=== PATIENT | female | born 1980 | race Caucasian/White ===

== ENCOUNTER 2016-11-27 18:41 | Emergency (ER) | payer MEDICAID ==
[~2016-11-27] VITALS: Ht 160 cm; Wt 61.0 kg
[2016-11-27 18:46] VITALS: Ht 160 cm; Wt 61.0 kg
[2016-11-27] MEDS ORDERED: ACETAMINOPHEN 325 MG TAB PO STA (19:00)
[2016-11-27] MEDS ORDERED: IBUP-1542 PO (20:15)
--- NOTE | 2016-11-27 20:17 | RADRPT ---
PROCEDURE: US OB. CLINICAL INDICATION: Pelvic pain TECHNIQUE: Transabdominal and transvaginal views of the pelvis are available for review. COMPARISON: No prior studies are available for comparison. FINDINGS: There is a single intrauterine gestation with the crown-rump length measuring 0.4 cm and the gestat ional sac measuring 0.8 cm, corresponding to a gestational age of 5 weeks and 5 days. The heart tones are not yet identified. There are hypoechoic masses in the uterus measuring up to 1.9 cm, consistent with fibroids. The right ovary measures 2.6 x 2.4 x 2.9 cm. There is Doppler flow identified. There is a corpus lut eum cyst in the right ovary. The left ovary was not visualized. There is a small to moderate amount of free fluid in the cul-de-sac. RPTAT: AA IMPRESSION: Single intrauterine with an estimated gestational age of 5 weeks and 5 days, based on ultr asound measurements. No heart tones are yet identified. Close follow-up is recommended. Corpus luteum cyst in the right ovary. Small to moderate amount of free fluid in the pelvis. .Dick Madsen MD, Date Time Electronically viewed and signed by .Dick Madsen MD, on 11/27/2016 20:17 .S/
[2016-11-27 20:25] LABS: ADD SCAN DIFF NO
[2016-11-27 20:36] LABS: BASOPHILS % 0.2 % (0.0-2.0); EOSINOPHILS # 0.1 10^3/ul (0.0-0.5); EOSINOPHILS % 0.5 % (0.0-7.0); HEMATOCRIT 38.3 % (37.0-47.0); LYMPHOCYTES # 2.8 10^3/ul (0.8-2.9); LYMPHOCYTES % 28.5 % (15.0-51.0); MEAN CORPUSCULAR HEMOGLOBIN 32.2 pg (29.0-33.0); MEAN CORPUSCULAR HGB CONC 33.9 g/dl (32.0-37.0); MEAN CORPUSCULAR VOLUME 94.8 fl (82.0-101.0); MEAN PLATELET VOLUME 9.5 fl (7.4-10.4); MONOCYTE # 0.6 10^3/ul (0.3-0.9); NEUTROPHIL # 6.4 10^3/ul (1.6-7.5); NEUTROPHILS % 64.5 % (39.0-77.0); PLATELET COUNT 346 10^3/UL (140-415); RED BLOOD COUNT 4.04 10^6/ul (4.20-5.40); RED CELL DISTRIBUTION WIDTH 12.2 % (11.5-14.5); WHITE BLOOD COUNT 9.9 10^3/ul (4.8-10.8)
[2016-11-27 21:49] LABS: ADD UMIC YES; URINE BILIRUBIN (Dip) NEGATIVE (NEGATIVE); URINE BLOOD (Dip) 3+ (NEGATIVE); URINE COLOR LT. YELLOW (YELLOW); URINE GLUCOSE (Dip) NEGATIVE (NEGATIVE); URINE KETONES (Dip) NEGATIVE (NEGATIVE); URINE LEUKOCYTE ESTERASE (Dip) NEGATIVE (NEGATIVE); URINE NITRITE (Dip) NEGATIVE (NEGATIVE); URINE TOTAL PROTEIN (Dip) NEGATIVE (NEGATIVE); URINE UROBILINOGEN (Dip) 0.2 E.U./dL (0.1-1.0)
[2016-11-27 21:51] VITALS: BP 116/73; PULSE 68; RESP 18
[2016-11-27 22:06] LABS: BACTERIA,URINE FEW; MUCUS,URINE FEW
--- NOTE | 2016-11-27 23:22 | ERD ---
ER Documentation Chief Complaint Date/Time DATE: 11/27/16 TIME: 23:19 Chief Complaint 17 wks , pelvic pain today HPI 36-year-old woman who is about 8 weeks by dates presents with left lower quadrant pelvic cramping and suprapubic discomfort. She was referred here by her tin roofer for further evaluation. She has had no vaginal discharge, no dysuria, no vaginal bleeding, no chest pain or shortness of breath. ROS All systems reviewed and are negative except as per history of present illness. Medications Home Meds Active Scripts Ibuprofen* (Ibuprofen*) 600 Mg Tablet, 600 MG PO Q8 for PAIN AND/OR INFLAMMATION , #30 TAB Prov:DAKOTA PATTERSON MD 11/27/16 Allergies Allergies: Coded Allergies: No Known Allergy (Unverified , 11/27/16) PMhx/Soc Medical and Surgical Hx: pt denies Medical Hx History of Surgery: Yes (TUMOR REMOVAL) Anesthesia Reaction: No Hx Neurological Disorder: No Hx Respiratory Disorders: No Hx Cardiac Disorders: No Hx Psychiatric Problems: No Hx Miscellaneous Medical Probl: No Hx Alcohol Use: No Hx Substance Use: No Hx Tobacco Use: No Smoking Status: Never smoker FmHx Family History: No diabetes Physical Exam Vitals Vital Signs Date Time Temp Pulse Resp B/P Pulse Ox O2 Delivery O2 Flow Rate FiO2 11/27/16 21:51 68 18 116/73 100 Room Air 11/27/16 18:46 98.2 110 20 116/73 100 Physical Exam GENERAL: Well-developed, well-nourished, well-hydrated, in no apparent distress , looks nontoxic in appearance HEENT: Moist mucous membranes, pink conjunctiva, no cervical spine tenderness or step-off deformities, no goiter, no jaundice or icterus, extraocular movements intact without pain. No submandibular induration, and no pharyngeal erythema NEURO: Alert and oriented 3, cranial nerves II through XII intact bilaterally, pupils equal round reactive to light, no focal deficits or facial asymmetry, sensation intact distally Strength 5/5 in upper and lower extremities bilaterally CARDIAC: Regular rate and rhythm, no murmurs rubs or gallops LUNGS: Clear bilaterally no wheezing crackles or stridor ABDOMEN: Soft nontender, no guarding, no rigidity, no rebound, no psoas sign no obturator sign. Normoactive bowel sounds SKIN: Warm and dry to touch, no abrasions, contusions, or hematomas, no lacerations, no ecchymosis, no target lesions, and without ulcers EXTREMITIES: No clubbing cyanosis or edema, calves are bilaterally symmetrical, no Homans sign, no popliteal cord sign. Distal pulses equal and bilateral PSYCH: Normal affect without agitation or irritability Result Diagram: 11/27/162013 Results 24 hrs Laboratory Tests Test 11/27/16 20:14 11/27/16 20:30 White Blood Count 9.910^3/ul Red Blood Count 4.0410^6/ul Hemoglobin 13.0g/dl Hematocrit 38.3% Mean Corpuscular Volume 94.8fl Mean Corpuscular Hemoglobin 32.2pg Mean Corpuscular Hemoglobin Concent 33.9g/dl Red Cell Distribution Width 12.2% Platelet Count 87712^3/UL Mean Platelet Volume 9.5fl Neutrophils % 64.5% Lymphocytes % 28.5% Monocytes % 6.0% Eosinophils % 0.5% Basophils % 0.2% Nucleated Red Blood Cells % 0.0/100WBC Neutrophils # 6.410^3/ul Lymphocytes # 2.810^3/ul Monocytes # 0.610^3/ul Eosinophils # 0.110^3/ul Basophils # 0.010^3/ul Nucleated Red Blood Cells # 0.010^3/ul Beta HCG, Quantitative 6398.2mIU/ml Urine Color LT. YELLOW Urine Clarity CLEAR Urine pH 6.0 Urine Specific [place] 1.020 Urine Ketones NEGATIVE Urine Nitrite NEGATIVE Urine Bilirubin NEGATIVE Urine Urobilinogen 0.2 E.U./dL Urine Leukocyte Esterase NEGATIVE Urine Microscopic RBC 5-10/HPF Urine Microscopic WBC 0-2/HPF Urine Epithelial Cells FEW Urine Bacteria FEW Urine Mucus FEW Urine Hemoglobin 3+ Urine Glucose NEGATIVE% Urine Total Protein NEGATIVE Current Medications Medications (Trade) Dose Ordered Sig/John Route PRN Reason Start Time Stop Time Status Last Admin Dose Admin Acetaminophen (Tylenol Tab) 650 mg ONCE STAT PO 11/27/16 19:00 11/27/16 19:02 DC 11/27/16 20:13 Procedures/MDM I administered acetaminophen 650 mg p.o. for mild pain. Obstetric and pelvic ultrasounds were performed revealing an IUP without heart tones, measuring about 5 weeks. No ectopic was identified all the left ovary was also not identified. CBC and electrolytes were unremarkable, beta-hCG was elevated over 6000. Urinalysis was negative for infection. Although ectopic could not be ruled out because the ultrasound did not show the left ovary, it is highly unlikely. Patient's vital signs are normal, pain has been controlled, and examination and palpation of the abdomen and pelvis is benign. I recommended she return for repeat ultrasound and beta-hCG testing. Differential diagnoses considered, included but not limited to cervicitis, ectopic , ovarian torsion, appendicitis, cholecystitis, bowel obstruction, pyelonephritis, nephrolithiasis, cystitis, as well as metabolic, hematologic, and electrolyte abnormalities. As well as abscess, cellulitis, fractures, and dislocations. Patient feels much better at this time, and vital signs are normal, symptoms have improved. I did give strict instructions to return to the ED if symptoms continue or worsen, patient will otherwise follow-up with primary care physician. Patient understood instructions and agreed to plan. Departure Diagnosis: Primary Impression: Pelvic pain Additional Impression: Missed ab Condition: Good Patient Instructions: Missed Miscarriage, Pelvic Pain, Unknown Cause DAKOTA PATTERSON MD Nov 27, 2016 23:21
== END 2016-11-27 21:52 | disposition home or self-care (01) ==
LOC: FTE 18:41
DX: O26.892 Other specified pregnancy related conditions, second trimester (principal); O02.1 Missed abortion; R10.2 Pelvic and perineal pain; Z85.9 Personal history of malignant neoplasm, unspecified; Z3A.17 17 weeks gestation of pregnancy
CPT/HCPCS: 76801; 76817; 81001; 84702; 85025; 86900; 86901; Z7610; 36415; 81003; 99284

== ENCOUNTER 2016-11-30 19:15 | Emergency (ER) | payer MEDICAID ==
[~2016-11-30] VITALS: Ht 154.9 cm; Wt 61.4 kg
[~2016-11-30 19:15] MED LIST: IBUP-1542 PO
[2016-11-30 19:23] VITALS: Ht 154.9 cm; Wt 61.4 kg
[2016-11-30] MEDS ORDERED: ACETAMINOPHEN 500 MG TAB PO STA (20:33)
--- NOTE | 2016-11-30 21:13 | RADRPT ---
PROCEDURE: Abdominal ultrasound CLINICAL INDICATION: Abdominal pain and distension TECHNIQUE: Axial and longitudinal [place] scale images of the four abdominal quadrants COMPARISON: None FINDINGS: Four quadrant abdominal ultrasound demonstrates no evidence of free fluid IMPRESSION: No intraperitoneal free fluid RPTAT: HH .Luis Perez MD, Date Time Electronically viewed and signed by .Luis Perez MD, on 11/30/2016 21:12 .W/
[2016-11-30 22:37] LABS: ADD SCAN DIFF NO
[2016-11-30 22:39] LABS: BASOPHILS % 0.2 % (0.0-2.0); EOSINOPHILS % 0.1 % (0.0-7.0); HEMATOCRIT 35.5 % (37.0-47.0); HEMOGLOBIN 12.4 g/dl (12.0-16.0); LYMPHOCYTES # 2.5 10^3/ul (0.8-2.9); LYMPHOCYTES % 23.4 % (15.0-51.0); MEAN CORPUSCULAR HGB CONC 34.9 g/dl (32.0-37.0); MEAN CORPUSCULAR VOLUME 94.4 fl (82.0-101.0); MEAN PLATELET VOLUME 9.4 fl (7.4-10.4); MONOCYTE # 0.5 10^3/ul (0.3-0.9); MONOCYTES % 4.5 % (0.0-11.0); NEUTROPHIL # 7.7 10^3/ul (1.6-7.5); NEUTROPHILS % 71.5 % (39.0-77.0); PLATELET COUNT 301 10^3/UL (140-415); RED BLOOD COUNT 3.76 10^6/ul (4.20-5.40); RED CELL DISTRIBUTION WIDTH 11.9 % (11.5-14.5); WHITE BLOOD COUNT 10.7 10^3/ul (4.8-10.8)
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
[2016-11-30 22:49] LABS: ALBUMIN 4.1 g/dl (3.3-4.9)
[2016-11-30 22:50] LABS: POTASSIUM 3.8 mmol/L (3.5-5.1)
[2016-11-30 22:52] LABS: ALBUMIN/GLOBULIN RATIO 1.2; BILIRUBIN,INDIRECT 0.2 mg/dl (0-1.1); BILIRUBIN,TOTAL 0.2 mg/dl (0.2-1.3); CREATININE 0.51 mg/dl (0.44-1.00); TOTAL PROTEIN 7.5 g/dl (6.1-8.1)
[2016-11-30 22:53] LABS: CALCIUM 9.1 mg/dl (8.4-10.2)
[2016-11-30 23:24] LABS: ADD UMIC YES; URINE BILIRUBIN (Dip) NEGATIVE (NEGATIVE); URINE BLOOD (Dip) 2+ (NEGATIVE); URINE COLOR LT. YELLOW (YELLOW); URINE GLUCOSE (Dip) NEGATIVE (NEGATIVE); URINE KETONES (Dip) NEGATIVE (NEGATIVE); URINE LEUKOCYTE ESTERASE (Dip) NEGATIVE (NEGATIVE); URINE NITRITE (Dip) NEGATIVE (NEGATIVE); URINE TOTAL PROTEIN (Dip) NEGATIVE (NEGATIVE); URINE UROBILINOGEN (Dip) 0.2 E.U./dL (0.1-1.0)
[2016-11-30 23:38] LABS: BACTERIA,URINE FEW; SQUAMOUS EPITHELIAL CELL,UR FEW
[2016-11-30 23:59] VITALS: BP 135/78; PULSE 68; RESP 17
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
== END 2016-12-01 00:03 | disposition home or self-care (01) ==
LOC: E/R 19:15
DX: O20.0 Threatened abortion (principal); O26.891 Other specified pregnancy related conditions, first trimester; R10.2 Pelvic and perineal pain; S19.9XXA Unspecified injury of neck, initial encounter; S39.92XA Unspecified injury of lower back, initial encounter; S39.91XA Unspecified injury of abdomen, initial encounter; V49.49XA Driver injured in collision with other motor vehicles in traffic accident, initial encounter; Z3A.01 Less than 8 weeks gestation of pregnancy
CPT/HCPCS: 36415; 76705; 76801; 76817; 80053; 81001; 81003; 83690; 84702; 85025

== ENCOUNTER 2017-06-01 12:48 | Outpatient (CLI) | payer MEDICAID ==
[~2017-06-01] VITALS: Ht 154.9 cm; Wt 70.5 kg
--- NOTE | 2017-06-01 13:49 | RADRPT ---
PROCEDURE: US OB biophysical profile. Ultrasound cervix CLINICAL INDICATION: decreased movements, contractions TECHNIQUE: Multiple sonographic images of the pelvis were obtained. In addition, transvaginal ez ges of the cervix were obtained. The images were reviewed on a PACS workstation. COMPARISON: No prior studies are available for comparison. FINDINGS: There is a single viable intrauterine gestation. Cardiac activity is present with 163 beats per min [place]. There is a vertex presentation. The placenta is posterior. There is no evidence of placental abruption. There is a normal amount of amniotic fluid with an KAILASH = 9.9 cm. The cervix is closed and measures 3.6 cm in length. Biophysical profile: movement 2/2 tone 2/2. breathing 2/2 KAILASH 2/2 Total 04/10 RPTAT: AA . IMPRESSION: Normal biophysical profile. Cervix is closed and measures 3.6 cm in length. . .Dick Madsen MD, Date Time Electronically viewed and signed by .Dick Madsen MD, on 06/01/2017 13:49 .S/
[2017-06-01] MEDS ORDERED: LACTATED RINGER'S 1,000 ML IV SCH (16:42)
[2017-06-01] MEDS ORDERED: BETAMET NA PHOS/AC(6 MG/ML) 5ML INJ ONE (16:52)
[2017-06-01] MEDS ORDERED: BETAMET NA PHOS/AC(6 MG/ML) 5ML INJ IM ONE (17:00)
[2017-06-01] MEDS ORDERED: TERBUTALINE 1 MG/ML INJ SC ONE (17:00)
[2017-06-01 18:17] LABS: BASOPHILS % 0.2 % (0.0-2.0); EOSINOPHILS % 0.4 % (0.0-7.0); HEMATOCRIT 36.2 % (37.0-47.0); HEMOGLOBIN 12.1 g/dl (12.0-16.0); LYMPHOCYTES # 1.9 10^3/ul (0.8-2.9); LYMPHOCYTES % 17.1 % (15.0-51.0); MEAN CORPUSCULAR HEMOGLOBIN 32.4 pg (29.0-33.0); MEAN CORPUSCULAR HGB CONC 33.4 g/dl (32.0-37.0); MEAN CORPUSCULAR VOLUME 97.1 fl (82.0-101.0); MONOCYTE # 0.6 10^3/ul (0.3-0.9); MONOCYTES % 5.8 % (0.0-11.0); NEUTROPHIL # 8.3 10^3/ul (1.6-7.5); NEUTROPHILS % 75.8 % (39.0-77.0); PLATELET COUNT 253 10^3/UL (140-415); RED BLOOD COUNT 3.73 10^6/ul (4.20-5.40); RED CELL DISTRIBUTION WIDTH 13.2 % (11.5-14.5); WHITE BLOOD COUNT 10.9 10^3/ul (4.8-10.8)
--- NOTE | 2017-06-01 18:31 | PN ---
Triage Information Date/Time Reason for visit: Uterine contractions Weeks of Gestation 31w 4d /Para Objective Heart Rate Comments reactive Exam [place]: no UCs s/p IVFs, terb Results/Medications Result Diagram: 06/01/17 1715 Results 24 hrs Laboratory Tests Test 06/01/17 17:15 White Blood Count 10.9 H Red Blood Count 3.73 L Hemoglobin 12.1 Hematocrit 36.2 L Mean Corpuscular Volume 97.1 Mean Corpuscular Hemoglobin 32.4 Mean Corpuscular Hemoglobin Concent 33.4 Red Cell Distribution Width 13.2 Platelet Count 253 Mean Platelet Volume 10.0 Neutrophils % 75.8 Lymphocytes % 17.1 Monocytes % 5.8 Eosinophils % 0.4 Basophils % 0.2 Nucleated Red Blood Cells % 0.0 Neutrophils # 8.3 H Lymphocytes # 1.9 Monocytes # 0.6 Eosinophils # 0.0 Basophils # 0.0 Nucleated Red Blood Cells # 0.0 Medications Current Medications Lactated Ringer's (Lr) 1,000 ml @ 125 mls/hr Q8H IV Last administered on t 17:44; Admin Dose 125 MLS/HR; Start 06/01/17 at 16:42 Imaging Results BPP 8/8, KAILASH 9.9cm, CL 3.6cm Disposition: Discharge Assessment/Plan Betamethasone given, return for 2nd dose tomorrow. labor precautions given. WESTLEY ANDERS Jun 01, 2017 18:31
[2017-06-01 18:48] VITALS: Ht 154.9 cm; Wt 70.5 kg
[2017-06-01 18:49] VITALS: BP 102/60; PULSE 106; RESP 20
[2017-06-01] MEDS ORDERED: PREN-93 PO (18:54)
--- NOTE | 2017-06-01 19:36 | TRIAGE ---
OB Triage Datetime Report Generated by N: 06/01/2017 19:36 Datetime: 06/01/2017 19:05 Labor Evaluation Frequency: IRREG Monitor Mode: External Duration (sec)2399: 40-60 Quality: Mild Pattern: Normal: <= 5 Contractions in 10 Minutes Resting Tone [place]: Relaxed Heart Rate FHR Baseline Rate: 145 Monitor Mode: External US Variability: Moderate 6-25 bpm Accelerations: 15X15 Decelerations: None Category: Category I Datetime: 06/01/2017 14:41 Time of Arrival: 06/01/2017 12:42 EGA: 31.4 Arrived By: Ambulatory Arrived From: Dr. Greer Chief Complaint: R/O PTL IN THE CLINIC Movement: Present Contractions: Denies/Absent (Annotations: Data stored by [facility] on behalf of user) Contractions: IRREG Rupture of Membranes: Denies Vaginal Bleeding: None Vaginal Discharge: Denies Recent Sexual Intercouse: Denies Abdominal Trauma: Not Applicable Patient Complaints: Contractions Time Provider Notified: 06/01/2017 15:03 Provider Notified: SANDRA Initial Plan: CL, BPP Datetime: 06/01/2017 14:38 Pain Assessment Pain Scale: 2 Pain Presence: Intermittent Pain Type: Contraction Pain Location: Abdomen; Back Pain Goal: 2 Pain Relief Measures: Comfort Measures Datetime: 06/01/2017 13:00 Stage of : OB Triage Assessment Type: Triage Maternal Assessment Level of Consciousness: Fully Conscious DTR's/Clonus: DTRs 2+; No Clonus Headache: Denies Blurred Vision: No Respiratory Effort: Unlabored; Regular Rhythm; Equal Expansion Breath Sounds, Left: Clear and Equal Breath Sounds, Right: Clear and Equal Nausea/Vomiting: Denies RUQ Epigastric Pain: Denies Lower Extremities Edema: None Degree: None Upper Extremities Edema: None Facial Edema: None Temperature Route: Axillary Fall Risk Assessment History of Falling: (0) No Secondary Diagnosis: (0) No Ambulatory Aid: (0) Bedrest/Nurse Assist IV Therapy: (0) No Gait: (0) Normal/Bedrest/Immobile Mental Status: (0) Oriented to Own Ability Fall Score: 0 Fall Risk Score Definition: No Risk: No action required Pain Assessment Pain Scale: 0 Pain Presence: None/Denies Pain Type: N/A
[2017-06-01 22:01] LABS: ADD UMIC YES; UR AMORPHOUS CRYSTAL FEW /HPF (NONE SEEN); UR ASCORBIC ACID NEGATIVE (NEGATIVE); UR BACTERIA FEW /HPF (NONE SEEN); UR BILIRUBIN (Dip) NEGATIVE (NEGATIVE); UR BLOOD (Dip) NEGATIVE (NEGATIVE); UR CLARITY CLOUDY (CLEAR); UR COLOR YELLOW (YELLOW); UR GLUCOSE (Dip) NEGATIVE (NEGATIVE); UR KETONES (Dip) NEGATIVE (NEGATIVE); UR LEUKOCYTE ESTERASE (Dip) NEGATIVE Leu/ul (NEGATIVE); UR NITRITE (Dip) NEGATIVE (NEGATIVE); UR RBC 1 /HPF (0-5); UR SPECIFIC GRAVITY (Dip) 1.011 (1.003-1.030); UR TOTAL PROTEIN (Dip) NEGATIVE (NEGATIVE); UR UROBILINOGEN (Dip) NEGATIVE (NEGATIVE)
== END 2017-06-01 18:59 | disposition home or self-care (01) ==
LOC: OBT 12:48 → L-D 12:48 → OBT 18:59
PROVIDERS: ATTEND Obstetrics & Gynecology
DX: O62.9 Abnormality of forces of labor, unspecified (principal); Z3A.31 31 weeks gestation of pregnancy
CPT/HCPCS: 36415; 76817; 76818; 81001; 85025; 96360; 96361; J0702; J3105; J7120; Z7500; G0463

== ENCOUNTER 2017-06-02 19:08 | Outpatient (CLI) | payer MEDICAID ==
[~2017-06-02] VITALS: Ht 152.4 cm; Wt 71.0 kg
[~2017-06-02 19:08] MED LIST changes: -IBUP-1542 PO; +PREN-93 PO
[2017-06-02 20:07] VITALS: Ht 152.4 cm; Wt 71.0 kg
[2017-06-02 20:08] VITALS: BP 108/55; PULSE 18; RESP 18
[2017-06-02] MEDS ORDERED: BETAMET NA PHOS/AC(6 MG/ML) 5ML INJ IM ONE (20:30)
--- NOTE | 2017-06-02 23:55 | PN ---
Triage Information Date/Time Jun 02, 2017 Reason for visit: Follow-up labor; for 2nd beta methasone injection. Weeks of Gestation 31w 5d /Para 3/1 Diabetes: none Hypertention: none Additional information PMHx: none. PSHx: ovarian cystectomy. NKDA. Objective Vital Signs Date Time Temp Pulse Resp B/P Pulse Ox O2 Delivery O2 Flow Rate FiO2 06/02/17 20:08 98.4 18 18 108/55 Room Air Heart Rate: 120's Heart Rate Comments Accels to 160 bpm. No decels. Contractions: None Disposition: Discharge Assessment/Plan A: IUP at 31w 5d. s/p labor. P: Second beta methasone injection given. Pt to keep appt with her doctor 06/06 as scheduled. labor precautions reviewed with pt. ZIA IRIZARRY MD Jun 02, 2017 23:55
--- NOTE | 2017-06-03 03:17 | TRIAGE ---
OB Triage Datetime Report Generated by CPN: 06/03/2017 03:16 Datetime: 06/02/2017 19:24 Time of Arrival: 06/02/2017 19:06 EGA: 31.5 Arrived By: Wheelchair Chief Complaint: Betamethasone #2 Initial Plan: EFM X2, Betamethasone #2 Datetime: 06/01/2017 18:00 Frequency: IRREG Monitor Mode: External Duration (sec)2399: 40-60 Quality: Mild Pattern: Normal: <= 5 Contractions in 10 Minutes Resting Tone [place]: Relaxed FHR Baseline Rate: 145 Monitor Mode: External US Variability: Moderate 6-25 bpm Accelerations: 15X15 Decelerations: None Datetime: 06/01/2017 17:00 Frequency: IRREG Monitor Mode: External Duration (sec)2399: 40-60 Quality: Mild Pattern: Normal: <= 5 Contractions in 10 Minutes Resting Tone [place]: Relaxed FHR Baseline Rate: 145 Monitor Mode: External US Variability: Moderate 6-25 bpm Accelerations: 15X15 Decelerations: None Datetime: 06/01/2017 16:04 Frequency: OCCASIONAL Monitor Mode: External Duration (sec)2399: 50-90 Quality: Mild Pattern: Normal: <= 5 Contractions in 10 Minutes Resting Tone [place]: Relaxed FHR Baseline Rate: 135 Monitor Mode: External US Variability: Moderate 6-25 bpm Accelerations: 15X15 Decelerations: None Category: Category I Datetime: 06/01/2017 15:04 Frequency: IRREG Monitor Mode: External Duration (sec)2399: 40-60 Quality: Mild Pattern: Normal: <= 5 Contractions in 10 Minutes Resting Tone [place]: Relaxed FHR Baseline Rate: 135 Monitor Mode: External US Variability: Moderate 6-25 bpm Accelerations: 15X15 Decelerations: None Category: Category I Datetime: 06/01/2017 14:37 Frequency: OCCASIONAL Monitor Mode: External Duration (sec)2399: 40-100 Quality: Mild Pattern: Normal: <= 5 Contractions in 10 Minutes Resting Tone [place]: Relaxed FHR Baseline Rate: 135 Monitor Mode: External US Variability: Moderate 6-25 bpm Accelerations: 15X15 Decelerations: None Category: Category I Datetime: 06/01/2017 13:25 Frequency: OCCASIONAL Monitor Mode: External Duration (sec)2399: 30-70 Quality: Mild Pattern: Normal: <= 5 Contractions in 10 Minutes Resting Tone [place]: Relaxed FHR Baseline Rate: 145 Monitor Mode: External US Variability: Moderate 6-25 bpm Accelerations: 15X15 Decelerations: None Category: Category I
== END 2017-06-03 00:01 | disposition home or self-care (01) ==
LOC: L-D 19:08 → OBT 19:08
PROVIDERS: ATTEND Obstetrics & Gynecology
DX: O60.03 Preterm labor without delivery, third trimester (principal); Z3A.31 31 weeks gestation of pregnancy
CPT/HCPCS: 96372; J0702; Z7500; G0463